=== PATIENT | female | born 2000 | race Caucasian/White ===

== ENCOUNTER → 2023-11-30 | Outpatient (CLI) | payer BC ==
[2023-11-30 08:06] LABS: BASO # 0.01 K/mm3 (0.02-0.10); HEMATOCRIT 38.4 % (37.0-47.0); HEMOGLOBIN 12.9 g/dL (12.5-16.0); LYMPH# 2.38 K/mm3 (1.50-4.00); MEAN CELL VOLUME 92 fl (78-100); MEAN CORPUSCULAR HEMOGLOBIN 31 pg (27-31); MEAN CORPUSCULAR HGB CONC 34 g/dL (33-37); MEAN PLATELET VOLUME 9.9 fl (7.4-10.4); MONO # 0.66 K/mm3 (0.20-0.80); NEU # 5.38 K/mm3 (1.40-6.50); PLATELET COUNT 210 K/mm3 (130-400); RED BLOOD COUNT 4.18 M/mm3 (4.10-5.30); RED CELL DISTRIBUTION WIDTH 12.4 % (11.5-14.5); WHITE BLOOD COUNT 8.4 K/mm3 (4.8-10.8)
[2023-11-30 08:19] LABS: ALBUMIN 4.2 g/dL (3.5-5.0)
[2023-11-30 08:20] LABS: CALCIUM 9.3 mg/dL (8.3-10.5)
[2023-11-30 08:21] LABS: TOTAL PROTEIN 6.8 g/dL (6.4-8.3)
[2023-11-30 08:23] LABS: TOTAL BILIRUBIN 0.4 mg/dL (0.2-1.2)
== END ==
LOC: LAB 07:44
PROVIDERS: Physician Assistant
DX: Z13.220 Encounter for screening for lipoid disorders (principal); Z13.29 Encounter for screening for other suspected endocrine disorder; Z13.1 Encounter for screening for diabetes mellitus; R74.01 Elevation of levels of liver transaminase levels; K90.9 Intestinal malabsorption, unspecified

== ENCOUNTER → 2024-05-11 | Outpatient (CLI) | payer BC ==
[2024-05-11 18:51] LABS: T3 TOTAL 102 ng/dL (35-193)
== END ==
LOC: LAB 07:35
PROVIDERS: Physician Assistant
DX: R94.6 Abnormal results of thyroid function studies (principal)